=== PATIENT | male | born 1945 | race Caucasian/White ===

== ENCOUNTER 2017-12-12 10:22 | Outpatient (CLI) | payer MEDICARE, OTHER ==
[2017-12-12 11:20] LABS: Bilirubin Negative (Negative); Blood, Urine Negative (Negative); Clarity CLEAR (Clear); Glucose, Urine (Dipstick) Negative (Negative); Leukocyte Negative (Negative); Nitrite Negative (Negative); Protein, Urine (Dipstick) Negative (Neg-Trace); Specific Gravity, Urine 1.004 (1.002-1.036); Urobilinogen 0.2 mg/dL (0.2-1.0); pH, Urine 6.5 (5.0-9.0)
[2017-12-12 11:30] LABS: Anion Gap 11 mmol/L (10-20); BUN (Urea Nitrogen) 21 mg/dL (8.4-25.7); Calc. Creatinine Clearance 0 mL/min (70-130); Calcium 9.3 mg/dL (7.8-10.44); Carbon Dioxide 30 mmol/L (23-31); Chloride 103 mmol/L (98-107); Estimated GFR-MDRD 45; Glucose 100 mg/dL (83-110); Potassium 4.4 mmol/L (3.5-5.1); Sodium 140 mmol/L (136-145)
[2017-12-12 11:35] LABS: Bacteria/HPF None Seen HPF (None Seen); Hyaline Casts/LPF 0-3 HYALINE CAST LPF (0-3 Hyaline); RBC/HPF None Seen HPF (0-3); Squamous Epithelial None Seen HPF (0-3); WBC/HPF None Seen HPF (0-3)
--- NOTE | 2017-12-12 12:24 | CT ---
CT OF ABDOMEN AND PELVIS PERFORMED WITHOUT CONTRAST ENHANCEMENT: Date: 12/12/17 HISTORY: Follow-up to renal calculi. COMPARISON: 08/27/16 CT examination. FINDINGS: The lung bases show some minimal linear change in the lingula probably related to scar. Hypodensities within the liver are most likely cysts. Small hiatal hernia is noted. Spleen is upper l imits of normal. Pancreas shows fatty change. Gallbladder is normal in size. It shows a tiny probable gallstone or calcified polyp. Right and left adrenal glands are normal. Right and left kidneys are not obstructed. There is a singl e punctate upper pole left renal calculus present. No right renal calculi and no ureteral calculi. Th ere is no significant periaortic or mesenteric adenopathy. CT Of pelvis was performed without contrast enhancement. Postoperative changes are noted related to t he sigmoid colon region. There is no evidence of any adenopathy or mass. The prostate is enlarged. Th ere is a fat-containing left inguinal hernia. There is ankylosis of the SI joints. IMPRESSION: 1. Single punctate nonobstructing upper pole left renal calculus. 2. Probable small gallstone. 3. Enlarged prostate. 4. Findings that would suggest the possibility of ankylosing spondylitis. POS: [facility]
== END 2017-12-12 10:23 | disposition home or self-care (01) ==
LOC: CT 10:22
PROVIDERS: ATTEND Urology
DX: N20.0 Calculus of kidney (principal); N40.0 Benign prostatic hyperplasia without lower urinary tract symptoms
CPT/HCPCS: 36415; 74176; 80048; 81001; 87086

== ENCOUNTER 2018-08-20 11:58 | Outpatient (CLI) | payer MEDICARE, OTHER ==
--- NOTE | 2018-08-20 14:32 | RAD ---
RIGHT ANKLE RADIOGRAPH THREE VIEWS: INDICATIONS: Right ankle pain. COMPARISON: None. FINDINGS: There is enthesopathic change of the posterior and plantar calcaneus. There is soft tissue swelling surrounding the distal leg, ankle, and hindfoot. There is mild degenerative change involving the tib iotalar, subtalar, and midfoot joints. No acute fracture or subluxation is evident. IMPRESSION: 1. Soft tissue swelling of the right lower extremity. 2. Scattered osteoarthrosis of the right hindfoot. 3. No acute osseous abnormality. POS: [facility]
== END 2018-08-20 11:59 | disposition home or self-care (01) ==
LOC: BICRAD 11:58
PROVIDERS: ATTEND Family Medicine
DX: M25.571 Pain in right ankle and joints of right foot (principal); M19.071 Primary osteoarthritis, right ankle and foot; M79.89 Other specified soft tissue disorders

== ENCOUNTER 2018-12-22 14:29 | Outpatient (CLI) | payer MEDICARE, OTHER ==
--- NOTE | 2018-12-22 16:53 | ULT ---
RENAL SONOGRAM: Date: 12-22-18 History: Renal calculi, renal insufficiency. Comparison: 05-20-17 FINDINGS: The kidneys demonstrate a normal sonographic appearance bilaterally without evidence of a renal mass, renal calculus or hydronephrosis. Right kidney measures 12.9 cm x 6.2 cm with the left kidney measur ing 14 cm x 5.7 cm. There has been no significant interval change when compared to the prior exam. Th ere is question of renal calculi on the prior study, but no calculi are seen on this examination. Non contrast CT exam in 2018 demonstrated no renal calculi. The urinary bladder demonstrates a normal sonographic appearance with urinary bladder volume of 234.8 ml. IMPRESSION: 1. Normal appearing bilateral kidneys and urinary bladder. POS: [facility]
--- NOTE | 2018-12-22 17:02 | RAD ---
KUB: History: Renal calculi. FINDINGS: The bones are demineralized. Flowing type calcification along the lumbar spine and what appears to be fusion of the SI joints raises the possibility of ankylosing spondylitis. No renal calculi are identified. No definite ureteral calculus. Vascular calcifications are present. IMPRESSION: No definitive renal calculi. POS: [facility]
== END 2018-12-22 14:30 | disposition home or self-care (01) ==
LOC: BICULT 14:29
PROVIDERS: ATTEND Urology
DX: N20.0 Calculus of kidney (principal); N28.9 Disorder of kidney and ureter, unspecified; N40.1 Benign prostatic hyperplasia with lower urinary tract symptoms; M10.9 Gout, unspecified
CPT/HCPCS: 36415; 74018; 76770; 80048; 81001; 84550; 87086

== ENCOUNTER 2020-02-29 09:57 | Outpatient (CLI) | payer MEDICARE, OTHER ==
--- NOTE | 2020-02-29 12:01 | ULT ---
RENAL ULTRASOUND: DATE: 02/29/2020. PROVIDED CLINICAL HISTORY: Kidney stones. FINDINGS: Comparison 12/22/2018. The right kidney measures approximately 12.4 x 4.7 x 5.1 cm and demonstrates no evidence for hydronep hrosis or mass. Left kidney measures about 13.9 x 5.9 x 6.2 cm and demonstrates no evidence for hydronephrosis or mas s. Echogenic material is seen within the urinary bladder measuring about 1.5 cm, possibly reflecting liya dder calculus but incompletely evaluated on the basis of this examination. IMPRESSION: Echogenic mass measuring about 1.5 cm involving the urinary bladder. This may reflect calculus. Oth er etiologies are not excluded. Consider CT as indicated. POS: [facility]
--- NOTE | 2020-02-29 12:07 | RAD ---
KUB: DATE: 02/29/2020 HISTORY: Renal calculi. COMPARISON: 12/12/2018 exam. FINDINGS: Bowel gas pattern appears nonobstructed. I do not see any definitive renal calculi on this examinatio n. No definite ureteral calculi are present. Flowing calcification along the vertebral bodies and ankylosis of the SI joints would be compatible w ith ankylosing spondylitis. IMPRESSION: 1. No evidence for any definite renal calculi. 2. Findings suggestive of ankylosing spondylitis. POS: [facility]
[2020-02-29 13:36] LABS: Anion Gap 16 mmol/L (10-20); BUN (Urea Nitrogen) 22 mg/dL (8.4-25.7); Calc. Creatinine Clearance 0 mL/min (70-130); Calcium 9.5 mg/dL (7.8-10.44); Carbon Dioxide 22 mmol/L (23-31); Chloride 108 mmol/L (98-107); Estimated GFR-MDRD 44; Glucose 112 mg/dL (83-110); Potassium 4.5 mmol/L (3.5-5.1); Sodium 141 mmol/L (136-145); Uric Acid 5.8 mg/dL (3.5-7.2)
[2020-02-29 14:02] LABS: Bacteria/HPF None Seen HPF (None Seen); Bilirubin Negative (Negative); Blood, Urine 2+ (Negative); Clarity Clear (Clear); Glucose, Urine (Dipstick) Normal (Negative); Leukocyte 25 Leu/uL (Negative); Nitrite Negative (Negative); Protein, Urine (Dipstick) 10 mg/dL (Neg-Trace); RBC/HPF 21-50 HPF (0-3); Squamous Epithelial None Seen HPF (0-3); Urobilinogen Normal mg/dL (Less than 2)
[2020-02-29 14:09] LABS: Urine Culture Reflex Yes Yes
== END 2020-02-29 09:58 | disposition home or self-care (01) ==
LOC: BICULT 09:57
PROVIDERS: ATTEND Urology
DX: Z12.5 Encounter for screening for malignant neoplasm of prostate (principal); N20.0 Calculus of kidney; N40.0 Benign prostatic hyperplasia without lower urinary tract symptoms; N28.9 Disorder of kidney and ureter, unspecified; M10.9 Gout, unspecified; R31.0 Gross hematuria; N32.89 Other specified disorders of bladder
CPT/HCPCS: 74018; 76770; 80048; 81001; 84550; 87086; G0103; 36415

== ENCOUNTER 2020-03-03 11:13 | Outpatient (CLI) | payer MEDICARE, OTHER ==
--- NOTE | 2020-03-03 12:38 | RAD ---
SUPINE ABDOMEN: HISTORY: Renal stone. COMPARISON: 02/29/2020. FINDINGS: Bowel gas pattern unremarkable. No definite urinary tract calcification. Degenerative spine changes . Evidence of syndesmophytes in the spine again noted. Degenerative changes at both hips. IMPRESSION: No interval change. No definite urinary tract calcification identified. POS: [facility]
--- NOTE | 2020-03-03 13:17 | CT ---
CT ABDOMEN AND PELVIS WITHOUT CONTRAST: 03/03/20 HISTORY: Kidney stones. COMPARISON: 12/12/17. FINDINGS: Absence of oral and IV contrast reduces the sensitivity for the exam particularly for evaluation of s olid organs and bowel. The lung bases are unremarkable. Hepatic cysts are stable. There are calcified gallstones. There is fatty infiltration and atrophy of the pancreas. There are tiny calculi in the left kidney measuring up to 3 mm. No calculi is seen in the right kidne y or either ureter. No hydroureteronephrosis seen. There is a 2 mm calculus in the dependent portion of the left side of the urinary bladder likely due to recently passed calculus. There is suggestion of a partially calcified 1 cm mass arising from the left wall of the urinary bladder. The prostate i s enlarged. No free air or free fluid is seen in the abdomen or pelvis. There are vascular calcifications without evidence of aneurysmal dilatation of the abdominal aorta. Fat containing bilateral inguinal hernia a re present. There are degenerative changes of the spine. IMPRESSION: 1. Hepatic cysts. 2. Cholelithiasis. 3. Nonobstructing tiny left renal calculi. 4. 2 mm bladder calculus. 5. Findings suspicious for a 1cm bladder mass. This should be evaluated with cystoscopy. 6. Prostatic enlargement. POS: [facility]
== END 2020-03-03 11:14 | disposition home or self-care (01) ==
LOC: SCSCT 11:13
PROVIDERS: ATTEND Urology
DX: N20.0 Calculus of kidney (principal); M10.9 Gout, unspecified; N28.9 Disorder of kidney and ureter, unspecified; K80.20 Calculus of gallbladder without cholecystitis without obstruction; N21.0 Calculus in bladder; K76.89 Other specified diseases of liver; N40.0 Benign prostatic hyperplasia without lower urinary tract symptoms
CPT/HCPCS: 74018; 74176

== ENCOUNTER 2020-03-11 06:30 | Outpatient (CLI) | payer MEDICARE, OTHER ==
[2020-03-11 08:38] VITALS: BMI 34.2
--- NOTE | 2020-03-11 13:23 | RAD ---
PA AND LATERAL OF THE CHEST: 03/11/20 INDICATION: Preop evaluation. COMPARISON: Prior exam dated August 29, 2016. FINDINGS: The lungs are clear. Heart size is within normal limits. DISH-like changes of the thoracic spine are stable appearing. No pleural effusion or pneumothorax is identified. IMPRESSION: No acute cardiopulmonary abnormality. POS: [facility]
== END 2020-03-11 06:31 | disposition home or self-care (01) ==
LOC: LABBT 06:30
PROVIDERS: ATTEND Urology
DX: Z01.818 Encounter for other preprocedural examination (principal); N32.89 Other specified disorders of bladder; M10.9 Gout, unspecified; N28.9 Disorder of kidney and ureter, unspecified; N20.0 Calculus of kidney; R97.20 Elevated prostate specific antigen [PSA]; Z86.711 Personal history of pulmonary embolism; N40.1 Benign prostatic hyperplasia with lower urinary tract symptoms; R35.0 Frequency of micturition
CPT/HCPCS: 71046

== ENCOUNTER 2020-03-16 05:43 | Observation (INO) | payer MEDICARE, OTHER ==
[2020-03-11 10:46] LABS: PTT 26.4 SEC (22.9-36.1); Prothrombin Time 13.1 sec (12.0-14.7)
[2020-03-11 10:53] LABS: Anion Gap 13 mmol/L (10-20); BUN (Urea Nitrogen) 20 mg/dL (8.4-25.7); Calc. Creatinine Clearance 67 mL/min (70-130); Calcium 9.5 mg/dL (7.8-10.44); Carbon Dioxide 24 mmol/L (23-31); Chloride 108 mmol/L (98-107); Estimated GFR-MDRD 47; Glucose 118 mg/dL (83-110); Sodium 140 mmol/L (136-145)
[2020-03-11 11:38] LABS: #Eosinphils 0.2 thou/uL (0.0-0.7); #Lymphocytes 0.8 thou/uL (1.20-3.40); #Monocytes 0.5 thou/uL (0.11-0.59); #Neutrophils 3.3 thou/uL (1.40-6.50); %Basophils 0.2 % (0.0-1.0); %Eosinophils 3.3 % (0.0-10.0); %Lymphocytes 16.1 % (21.0-51.0); %Monocytes 10.2 % (0.0-10.0); %Neutrophils 70.1 % (42.0-75.0); Hemoglobin 13.7 g/dL (14.0-18.0); MDiff Complete? YES; Macrocytosis SLIGHT = 6-15 cells (100X) (0-5/hpf); Mean Corpuscular HGB CONC 32.2 g/dL (32.0-36.0); Mean Corpuscular Hemoglobin 34.7 pg (27.0-31.0); Mean Platelet Volume 7.6 fL (7.4-10.4); Platelet Count 148 thou/uL (130-400); Platelet Morphology Comment Appears Decreased; RBC Distribution Width 12.8 % (11.5-14.5); Red Blood Cell (RBC) Count 3.96 mill/uL (4.70-6.10); White Blood Cell (WBC) Count 4.7 thou/uL (4.8-10.8)
[2020-03-11 17:21] LABS: SARS-CoV-2 MS2 Positive; SARS-CoV-2 N Gene Negative; SARS-CoV-2 S Gene Negative; SARS-CoV-2 orf1ab Negative
[2020-03-16] MEDS ORDERED: Sodium Chloride 0.9% 100 ML ONE (06:36)
[2020-03-16] MEDS ORDERED: Piperacillin/Tazobactam 3.375 GM VIAL ONE (06:36)
[2020-03-16] MEDS ORDERED: Famotidine/PF 20 mg/2ml Vial ONE (06:39)
[2020-03-16] MEDS ORDERED: Fentanyl 100 MCG/2 ML VIAL ONE (06:39)
[2020-03-16] MEDS ORDERED: SUGAMMADEX SODIUM 500 MG/5 ML VIAL ONE (07:13)
[2020-03-16] MEDS ORDERED: Iopamidol 50 ML FS ONE (07:14)
[2020-03-16] MEDS ORDERED: Zolpidem Tartrate 5 MG TAB PO PRN (09:21)
[2020-03-16] MEDS ORDERED: Morphine 4 MG/ML VIAL SLOW IVP PRN (09:21)
[2020-03-16] MEDS ORDERED: Acetaminophen 500 MG TAB PO PRN (09:21)
[2020-03-16] MEDS ORDERED: hydrALAZINE 20 MG/ML VIAL SLOW IVP PRN (09:21)
[2020-03-16] MEDS ORDERED: HYDROcodone/Acetaminophen 5/325 mg Tablet PO PRN (09:21)
[2020-03-16] MEDS ORDERED: Morphine 2 MG/ML SYRINGE SLOW IVP PRN (09:21)
[2020-03-16] MEDS ORDERED: diphenhydrAMINE 50 MG/ML VIAL IVP PRN (09:21)
[2020-03-16] MEDS ORDERED: Mag-Al 1200 mg/1200 mg/30 ML UDCUP PO PRN (09:21)
[2020-03-16] MEDS ORDERED: Ondansetron PF 4 MG/2 ML Vial IVP PRN (09:21)
[2020-03-16] MEDS ORDERED: Promethazine HCl 25 MG/ML VIAL IM PRN (10:42)
[2020-03-16] MEDS ORDERED: Ondansetron HCl/PF 4 MG/2 ML Vial IVP PRN (10:42)
[2020-03-16] MEDS ORDERED: Promethazine HCl 25 MG/ML VIAL SLOW IVP PRN (10:42)
[2020-03-16 12:05] LABS: #Lymphocytes 0.4 thou/uL (1.20-3.40); #Monocytes 0.1 thou/uL (0.11-0.59); #Neutrophils 3.5 thou/uL (1.40-6.50); %Basophils 0.2 % (0.0-1.0); %Eosinophils 0.3 % (0.0-10.0); %Lymphocytes 10.8 % (21.0-51.0); %Monocytes 1.9 % (0.0-10.0); %Neutrophils 86.8 % (42.0-75.0); Hemoglobin 13.4 g/dL (14.0-18.0); Mean Corpuscular HGB CONC 33.5 g/dL (32.0-36.0); Mean Corpuscular Hemoglobin 35.6 pg (27.0-31.0); Mean Platelet Volume 7.2 fL (7.4-10.4); Platelet Count 130 thou/uL (130-400); RBC Distribution Width 12.6 % (11.5-14.5); Red Blood Cell (RBC) Count 3.77 mill/uL (4.70-6.10); White Blood Cell (WBC) Count 4.1 thou/uL (4.8-10.8)
--- NOTE | 2020-03-16 12:18 | OP ---
DATE OF PROCEDURE: 03/16/2020 PREOPERATIVE DIAGNOSES: A 75-year-old male presents with, 1. 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 2. Multiple bladder tumor: Mid trigone 8-10 mm, left lateral wall focus x2, each measuring about 1 cm; second focus with calcific density adherent, left lateral third lesion about 8-10 mm, posterior wall about a centimeter. 3. 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 4. moderate bilobar hyperplasia, prostate volume 65 g. 5. Bladder stone debris. 6. Elevated PSA with abnormal BEAR. POSTOPERATIVE DIAGNOSES: Same . PROCEDURES PERFORMED: Cystoscopy, transurethral resection of bladder tumor of multiple bladder tumor, in which total concomitant measures over 5 cm, channel transurethral resection of the prostate, transurethral resection of bladder neck tumor x2, transurethral resection of prostatic urethral veru mass, evacuation of bladder stone debris, transrectal ultrasound volume study, prostate biopsy x6 core ANESTHESIA: General. IV FLUIDS: 1400 mL. ESTIMATED BLOOD LOSS: Minimal. COMPLICATIONS: None apparent. INTRAOPERATIVE FINDINGS: 1. Bilobar hyperplasia of the prostate with no median lobe, [id number] obstruction. 2. A verumontanum prostatic urethral lesion suspicious for TCC in which exiting the verumontanum region measuring about 8 to 10 mm. 3. Bladder neck lesion x2 each measuring about 1 cm, however, pedunculated with a narrow stalk. 4. Multiple bladder tumor: Mid trigone 8 to 10 mm,left lateral multiple focus x3: dominant region left lateral wall x2 each measuring about 8-10 mm, second focus have calcific density adherent; posterior bladder wall tumor 8-10mm SPECIMENS: 1. Superficial bladder tumor of the left lateral trigone. 2. Deep sent separately from this region. 3. Bladder neck tumor, deep bladder neck sent separately. 4. Verumontanum tumor. 5. Channel TUR prostate specimen. 6. Six core prostate volume labeled right base, mid lateral,apex, left base, mid lateral, left apex INDICATIONS FOR PROCEDURE AND HISTORY: Mr. Greenwood is a 75-year-old male, well known to me, in which he initially presented with renal failure with multiple urolithiasis. I initially saw him back in 2015 and his stones have resolved. Recent CT scan demonstrates just punctate left renal lithiasis, not of concern. He has some mild sediment stone debris in the bladder with a recent cystoscopy. A renal bladder ultrasound was obtained for surveillance of his history of kidney stone. However, the ultrasound demonstrated the left lateral bladder tumor with calcific density. A definitive CT confirmed this as well as cystoscopy. Unfortunately, cystoscopy demonstrated multiple lesions as described as above, and he presents today for staging TURBT, TUR prostate channel, and prostate biopsy as his abnormal digital rectal exam with firmness, and elevated PSA. Indications for the procedure were reviewed with him in detail in differential diagnosis suspicious for transitional cell carcinoma with concomitant prostate involvement versus secondary prostate cancer has been discussed with him in detail. Risks and complications of the procedure have been discussed including, but not limited to , bleeding, pain, infection, injury to adjacent organs such as ureteral orifices, bladder perforation, sepsis, abscess, stricture formation, PE and DVT, perioperative morbidity and mortality. All questions were answered to his satisfaction and he desired to proceed. DESCRIPTION OF PROCEDURE: After an informed consent was signed, the patient was taken to the operating room, placed in a dorsal lithotomy position with the genital area prepped and draped in the usual surgical sterile fashion. We staged the urethra in the bladder with a 21-Bahamian 30-degree and a 70-degree lens. Again, noted at the level of the verumontanum was a pedunculated sessile lesion exiting the veru, and it is pedunculated measuring about a centimeter. Prostatic urethra demonstrates [id number] bilobar hyperplasia of the prostate. There is no median lobe. At the level of the bladder neck, there were two pedunculated lesions, each of which measure about 8 to 10 mm. It had a pedunculated stalk. Upon entering the bladder, the UOs were identified bilaterally well away from the bladder neck with trabeculation consistent with chronic outlet obstruction. There was some sediment debris within the bladder consistent with bladder calculi, these were Ellik evacuated with tumor resection. We staged his bladder tumors, of note was bladder tumor visualized demonstrates post trigone lesion about 8 to 10 mm, left lateral bladder tumor x4 focus, two dominant ones in the left lateral, each measuring about 8 to 10 mm second focus demonstrating calcific density adherent, the third nidus on the left lateral wall, also about 8 to 10 mm, posterior wall also about 8 to 10 mm in size. At this time, we transitioned to a 30-degree and a 70-degree lens, and there was no other bladder neck lesion identified. A 26-Bahamian resectoscope with a visual obturator was passed. We treated his bladder tumor first. We resected the left lateral tumors, then proceeded with our trigone tumor. The superficial tumors were sent separately. I did take a deep specimen from the left lateral dominant tumor and sent separately. We then proceeded to treat his bladder neck tumors, which were sent separately. Deep TUR of bladder neck was also sent at the tumor bed of the bladder neck lesion. At this time, we resected his verumontanum tumor. This was sent separately as well. We obtained hemostasis of his lateral prostatic lobes. His lateral lobes of the prostate were quite oozy, as there were prominent varicosity. I cauterized the prostatic mucosa, however, it had persistent oozing. Therefore, decision was made to perform a channel TUR to get deeper tissue and obtain better hemostasis. Channel TURP was performed. we obtained good hemostasis and no further bleeding was appreciated. The prostatic tissue was sent separately. At this time, a 22- Bahamian 3-way Cox catheter was placed without difficulty, 30 mL insufflated. CBI tubing was attached, however, clamped and I will monitor him for degree of hematuria. At this time, the patient was placed in the left lateral decubitus position. Transrectal ultrasound probe was placed. A digital rectal exam demonstrates firm nodular prostate. There was a tiny nodularity at the right base to mid prostate with no gross extension. Volume study was performed. Prostate urethral length measures 5.2 with 5.5, height of 4.3, volume 65 g. At this time, we obtained six core needle prostate biopsy of his prostate, labeled right base, right mid, right apex, left base, left mid, left apex. He tolerated the procedure well and was transported to the recovery room in stable condition. Given the above procedures, I will monitor the patient overnight, a 23-hour observation. Job ID: [id number] [facility]
[2020-03-16 12:27] VITALS: BMI 34.2
[2020-03-16 12:30] LABS: Anion Gap 14 mmol/L (10-20); BUN (Urea Nitrogen) 21 mg/dL (8.4-25.7); Calc. Creatinine Clearance 72 mL/min (70-130); Calcium 8.3 mg/dL (7.8-10.44); Carbon Dioxide 22 mmol/L (23-31); Chloride 110 mmol/L (98-107); Estimated GFR-MDRD 51; Glucose 116 mg/dL (83-110); Potassium 4.6 mmol/L (3.5-5.1); Sodium 141 mmol/L (136-145)
[2020-03-16] MEDS: Sodium Chloride 0.9% 1,000 ML IV SCH ×2 (12:54→13:04)
[2020-03-16] MEDS: HYDROcodone/Acetaminophen 5/325 mg Tablet PO PRN ×2 (13:00→18:10)
[2020-03-16] MEDS: Piperacillin/Tazobactam 3.375 GM in Sodium Chloride 0.9% 100 ML IVPB SCH ×2 (13:08→18:11)
[2020-03-16] MEDS ORDERED: Rocuronium Bromide 10 MG/ML (10ML VIAL) ONE (15:48)
[2020-03-16] MEDS ORDERED: Lidocaine 1% PF 5 ML VIAL ONE (15:48)
[2020-03-16] MEDS ORDERED: EPHEDRINE 25 MG/5 ML SYRINGE ONE (15:48)
[2020-03-16] MEDS ORDERED: PROPOFOL 200 MG/20 ML VIAL ONE (15:48)
[2020-03-16] MEDS ORDERED: Dexamethasone 20 MG/5 ML VIAL ONE (15:48)
[2020-03-16] MEDS ORDERED: Ondansetron PF 4 MG/2 ML Vial ONE (15:48)
[2020-03-16] MEDS ORDERED: Metoclopramide HCl 10 MG/2 ML VIAL ONE (15:48)
[2020-03-16] MEDS ORDERED: PHENYLEPHRINE-NS 100 MCG/ML 10 ML SYRINGE ONE (15:48)
[2020-03-16] MEDS ORDERED: Trospium 20 MG TAB PO SCH (21:00)
[2020-03-16] MEDS ORDERED: Rosuvastatin 20 MG TAB PO SCH (21:00)
[2020-03-16] MEDS ORDERED: Docusate 100 MG CAP PO SCH (21:00)
[2020-03-16] MEDS ORDERED: Famotidine/PF 20 mg/2ml Vial SLOW IVP SCH (21:00)
[2020-03-17] MEDS: Piperacillin/Tazobactam 3.375 GM in Sodium Chloride 0.9% 100 ML IVPB SCH ×2 (00:21→06:13)
[2020-03-17] MEDS: Sodium Chloride 0.9% 1,000 ML IV SCH (02:04)
[2020-03-17 03:38] VITALS: BP 129/77; TEMP 98.1
[2020-03-17 06:06] LABS: #Lymphocytes 0.5 thou/uL (1.20-3.40); #Monocytes 0.5 thou/uL (0.11-0.59); #Neutrophils 5.4 thou/uL (1.40-6.50); %Basophils 0.2 % (0.0-1.0); %Eosinophils 0.1 % (0.0-10.0); %Lymphocytes 8.3 % (21.0-51.0); %Neutrophils 83.4 % (42.0-75.0); Hemoglobin 12.3 g/dL (14.0-18.0); Mean Corpuscular HGB CONC 32.8 g/dL (32.0-36.0); Mean Corpuscular Hemoglobin 35.1 pg (27.0-31.0); Mean Platelet Volume 7.5 fL (7.4-10.4); Platelet Count 133 thou/uL (130-400); RBC Distribution Width 12.6 % (11.5-14.5); White Blood Cell (WBC) Count 6.5 thou/uL (4.8-10.8)
[2020-03-17 06:29] LABS: Anion Gap 11 mmol/L (10-20); BUN (Urea Nitrogen) 20 mg/dL (8.4-25.7); Carbon Dioxide 23 mmol/L (23-31); Chloride 109 mmol/L (98-107); Potassium 4.3 mmol/L (3.5-5.1); Sodium 139 mmol/L (136-145)
[2020-03-17 06:30] LABS: Calc. Creatinine Clearance 70 mL/min (70-130); Calcium 7.6 mg/dL (7.8-10.44); Estimated GFR-MDRD 50; Glucose 147 mg/dL (83-110)
[2020-03-17] MEDS ORDERED: Silodosin 4 MG CAP PO SCH (08:00)
[2020-03-17] MEDS ORDERED: Allopurinol 100 MG TAB PO SCH (09:00)
[2020-03-17] MEDS ORDERED: Finasteride 5 MG TAB PO SCH (09:00)
[2020-03-17] MEDS ORDERED: Folic Acid 1 MG TAB PO SCH (09:00)
[2020-03-17] MEDS ORDERED: pyridOXINE 50 MG (B6) TAB PO SCH (09:00)
--- NOTE | 2020-03-17 09:38 | DIS ---
DATE OF ADMISSION: 03/16/2020 DATE OF DISCHARGE: 03/17/2020 DISPOSITION: To home with indwelling Cox catheter to leg bag gravity. CONDITION: Stable. DISCHARGE MEDICATIONS: Omnicef 300 mg one p.o. b.i.d. until followup appointment. He may resume his home medication, except his aspirin. Activity level, no heavy lifting, straddling, stair climbing. BRIEF HOSPITAL COURSE: Mr. Greenwood is a pleasant 75-year-old male, whom I have known due to history of kidney stones, renal insufficiency. On surveillance renal bladder ultrasound, he was found to have a bladder mass. 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 He also underwent transrectal ultrasound prostate biopsy and a channel TURP concomitantly due to elevated PSA and prostatic urethral lesion. Surgery was uneventful. He has not had any significant gross hematuria of concern and is stable to be discharged. followup appointment next Saturday for catheter removal and review of pathology. Job ID: [id number] [facility]
== END 2020-03-17 08:30 | disposition home or self-care (01) ==
LOC: SDC 05:43 → SURG A 09:29
PROVIDERS: ADMIT Urology; ATTEND Urology
PROC: 0VB03ZX Excision of Prostate, Percutaneous Approach, Diagnostic (ICD-10-PCS; principal; 2020-03-16)
PROC: 0VT08ZZ Resection of Prostate, Via Natural or Artificial Opening Endoscopic (ICD-10-PCS; 2020-03-16)
PROC: 0TBB8ZZ Excision of Bladder, Via Natural or Artificial Opening Endoscopic (ICD-10-PCS; 2020-03-16)
PROC: 0TBC8ZZ Excision of Bladder Neck, Via Natural or Artificial Opening Endoscopic (ICD-10-PCS; 2020-03-16)
PROC: 0T5B8ZZ Destruction of Bladder, Via Natural or Artificial Opening Endoscopic (ICD-10-PCS; 2020-03-16)
DX: C61 Malignant neoplasm of prostate (principal); C67.0 Malignant neoplasm of trigone of bladder; C67.2 Malignant neoplasm of lateral wall of bladder; C67.5 Malignant neoplasm of bladder neck; N40.1 Benign prostatic hyperplasia with lower urinary tract symptoms; R35.0 Frequency of micturition; N13.8 Other obstructive and reflux uropathy; N32.89 Other specified disorders of bladder; N28.9 Disorder of kidney and ureter, unspecified; M10.9 Gout, unspecified; I25.10 Atherosclerotic heart disease of native coronary artery without angina pectoris; I95.89 Other hypotension; K90.0 Celiac disease; N52.9 Male erectile dysfunction, unspecified; E78.5 Hyperlipidemia, unspecified; F41.9 Anxiety disorder, unspecified; Z87.442 Personal history of urinary calculi; Z86.711 Personal history of pulmonary embolism; Z87.891 Personal history of nicotine dependence; Z79.899 Other long term (current) drug therapy; Z95.1 Presence of aortocoronary bypass graft; Z90.49 Acquired absence of other specified parts of digestive tract
CPT/HCPCS: 52240; 52601; 55700; 80048 ×3; 85025 ×3; 85610; 85730; 86850; 86900; 86901; 96361 ×2; 96365; 96366 ×2; 96375; C1758; G0378 ×2; U0003; 36415; 87635; 88305; 88341; 88342; J1100; J2001; J2405; J2543; J2704; J2765; J3010; J3490; Q9967; S0028

== ENCOUNTER 2020-04-06 09:00 | Outpatient (CLI) | payer MEDICARE, OTHER ==
--- NOTE | 2020-04-06 11:38 | CT ---
CHEST CT WITHOUT IV CONTRAST: HISTORY: Malignant neoplasm of urinary bladder. FINDINGS: Minimal scattered linear parenchymal changes in the lingula and some pleural-based linear changes in the right lower lobe with minimal pleural thickening having the appearance of chronic change. No dulce dence for metastasis. No mediastinal mass or adenopathy. A 2 cm diameter partially calcified nodule in the left lobe of the thyroid with a smaller nodule in the right lobe of the thyroid. No pleural effusion or pericardial effusion. Circumscribed low-attenuation foci within the liver, stable from p rior study. Probable cholelithiasis. Fatty changes in the pancreas. One calcific density in the le ft kidney, possibly a small stone versus a small vascular calcification. IMPRESSION: No evidence for pulmonary metastasis. Left lobe of thyroid partially calcified nodule. No mediastin al mass or adenopathy. Cholelithiasis without evidence for acute cholecystitis. Small punctate left renal calcific opacification, possibly a small stone versus focal renal vascular calcification. Oth er findings as above. POS: [facility]
--- NOTE | 2020-04-06 13:56 | NM ---
NUCLEAR MEDICINE BONE SCAN WHOLE BODY: (Skeletal scintigraphy) DATE: 04/06/2020 HISTORY: 75-year-old male with prostate cancer and bladder cancer. TECHNIQUE: IV injection of technetium 99m-MDP: 31.2 mCi 3 hour delayed whole body skeletal scintigraphy in anterior and posterior views. FINDINGS: There is a single focal abnormal focus of significantly increased uptake at the right ischium, includ ing ischial tuberosity. Review of 03/03/2020 CT demonstrates an ill-defined region of nonspecific, sclerosis of bone in this lo cation, with no fracture lucency. This was not present on CTs of 09/13/2015, CT of 10/11/2015, 11/17/2015, 02/23/2016, 08/27/2016, or 12/12/2017. No other foci are suspicious for metastasis. IMPRESSION: Solitary focus of increased uptake at the right ischium. This could represent a solitary metastatic o sseous lesion.
== END 2020-04-06 09:01 | disposition home or self-care (01) ==
LOC: CT 09:00
PROVIDERS: ATTEND Urology
DX: C67.9 Malignant neoplasm of bladder, unspecified (principal); C61 Malignant neoplasm of prostate; K80.20 Calculus of gallbladder without cholecystitis without obstruction; E04.1 Nontoxic single thyroid nodule; N28.89 Other specified disorders of kidney and ureter; C79.51 Secondary malignant neoplasm of bone
CPT/HCPCS: 71250; 78306; A9503

== ENCOUNTER 2020-11-25 12:30 | Outpatient (CLI) | payer MEDICARE, OTHER | END 2020-11-25 12:31 | disposition home or self-care (01) | LOC: BICULT 12:30 | PROVIDERS: ATTEND Internal Medicine Gastroenterology | DX: D12.6 Benign neoplasm of colon, unspecified (principal); K90.0 Celiac disease; E04.2 Nontoxic multinodular goiter; Z93.6 Other artificial openings of urinary tract status | CPT/HCPCS: 76536 ==

== ENCOUNTER 2022-05-10 12:59 | Outpatient (CLI) | payer MEDICARE, OTHER | END 2022-05-10 13:00 | disposition home or self-care (01) | LOC: BICULT 12:59 | PROVIDERS: ATTEND Otolaryngology Plastic Surgery within the Head & Neck | DX: E04.1 Nontoxic single thyroid nodule (principal) | CPT/HCPCS: 76536 ==

== ENCOUNTER 2022-08-15 08:34 | Outpatient (CLI) | payer MEDICARE, OTHER ==
[2022-08-15] MEDS ORDERED: Magnevist 469MG/ML 20 ML VIAL ONE (10:37)
== END 2022-08-15 08:35 | disposition home or self-care (01) ==
LOC: TBSIIMAG 08:34
PROVIDERS: ATTEND Radiology Radiation Oncology
DX: C79.51 Secondary malignant neoplasm of bone (principal); C61 Malignant neoplasm of prostate; Z98.890 Other specified postprocedural states
CPT/HCPCS: 72197; A9579

== ENCOUNTER 2022-09-22 02:02 | Inpatient (IN) | payer MEDICARE, OTHER ==
[2022-09-22] MEDS ORDERED: Acetaminophen 500 MG TAB ONE (02:53)
[2022-09-22 03:00] LABS: #Basophils 0.1 thou/uL (0.0-0.2); #Eosinphils 0.1 thou/uL (0.0-0.7); #Lymphocytes 0.2 thou/uL (1.20-3.40); #Monocytes 0.6 thou/uL (0.11-0.59); #Neutrophils 5.3 thou/uL (1.40-6.50); %Basophils 1.1 % (0.0-1.0); %Eosinophils 1.4 % (0.0-10.0); %Lymphocytes 3.2 % (21.0-51.0); %Monocytes 9.1 % (0.0-10.0); %Neutrophils 85.1 % (42.0-75.0); Hemoglobin 11.3 g/dL (14.0-18.0); Mean Corpuscular HGB CONC 33.4 g/dL (32.0-36.0); Mean Corpuscular Hemoglobin 37.4 pg (27.0-31.0); Mean Platelet Volume 7.3 fL (7.4-10.4); Platelet Count 109 10x3/uL (130-400); RBC Distribution Width 12.1 % (11.5-14.5); Red Blood Cell (RBC) Count 3.04 mill/uL (4.70-6.10); White Blood Cell (WBC) Count 6.2 10x3/uL (4.8-10.8)
[2022-09-22 03:45] LABS: ALT (SGPT) 18 U/L (8-55); AST (SGOT) 25 U/L (5-34); Albumin 3.8 g/dL (3.4-4.8); Alkaline Phosphatase 75 U/L (40-110); Anion Gap 13 mmol/L (10-20); BUN (Urea Nitrogen) 22 mg/dL (8.4-25.7); Bilirubin, Total 0.9 mg/dL (0.2-1.2); Calc. Creatinine Clearance 0 mL/min (70-130); Calcium 9.3 mg/dL (7.8-10.44); Carbon Dioxide 20 mmol/L (23-31); Chloride 104 mmol/L (98-107); Estimated GFR 51; Glucose 160 mg/dL (83-110); Magnesium 1.7 mg/dL (1.6-2.6); Potassium 4.3 mmol/L (3.5-5.1); Protein, Total 6.8 g/dL (5.8-8.1); Sodium 133 mmol/L (136-145)
[2022-09-22 03:55] LABS: SARS-CoV-2 NAA Rapid Test Not Detected (NotDetected)
[2022-09-22] MEDS ORDERED: Ondansetron PF 4 MG/2 ML Vial IVP PRN (05:36)
[2022-09-22] MEDS ORDERED: Acetaminophen 650 MG Suppository PR PRN (05:36)
[2022-09-22] MEDS ORDERED: Ondansetron ODT 4 MG TAB PO PRN (05:36)
[2022-09-22] MEDS ORDERED: Magnevist 469MG/ML 20 ML VIAL ONE (10:57)
[2022-09-22 13:52] VITALS: BMI 33.0
[2022-09-22] MEDS: Enoxaparin Sodium 40 MG/0.4 ML SYRINGE SC SCH (15:51)
[2022-09-22] MEDS: Sodium Chloride 0.9% 1,000 ML IV SCH (15:51)
[2022-09-22] MEDS: XTANDI 40 MG PO SCH (18:48)
[2022-09-22] MEDS: Acetaminophen 325 MG TAB PO PRN (22:19)
[2022-09-22] MEDS: MINERAL SUPPLEMENT PO SCH (22:19)
[2022-09-22] MEDS: Rosuvastatin 20 MG TAB PO SCH (22:19)
[2022-09-22] MEDS: [UNRECOGNIZED DRUG - OTHER] PO SCH (22:19)
[2022-09-22] MEDS: Ferrous Sulfate 325 MG TAB PO SCH (22:21)
[2022-09-22] MEDS: Ascorbic Acid 500 mg Chewable Tablet PO SCH (22:24)
[2022-09-23] MEDS: Sodium Chloride 0.9% 1,000 ML IV SCH ×2 (00:20→13:19)
[2022-09-23 06:06] LABS: #Eosinphils 0.2 thou/uL (0.0-0.7); #Lymphocytes 0.6 thou/uL (1.20-3.40); #Monocytes 0.4 thou/uL (0.11-0.59); #Neutrophils 2.2 thou/uL (1.40-6.50); %Basophils 0.3 % (0.0-1.0); %Eosinophils 4.8 % (0.0-10.0); %Lymphocytes 17.9 % (21.0-51.0); %Monocytes 11.6 % (0.0-10.0); %Neutrophils 65.4 % (42.0-75.0); Hemoglobin 10.3 g/dL (14.0-18.0); Mean Corpuscular HGB CONC 33.2 g/dL (32.0-36.0); Mean Corpuscular Hemoglobin 37.6 pg (27.0-31.0); Mean Platelet Volume 7.1 fL (7.4-10.4); Platelet Count 114 10x3/uL (130-400); RBC Distribution Width 12.1 % (11.5-14.5); Red Blood Cell (RBC) Count 2.73 mill/uL (4.70-6.10); White Blood Cell (WBC) Count 3.4 10x3/uL (4.8-10.8)
[2022-09-23 06:17] LABS: Anion Gap 12 mmol/L (10-20); BUN (Urea Nitrogen) 17 mg/dL (8.4-25.7); Calc. Creatinine Clearance 71 mL/min (70-130); Calcium 9.1 mg/dL (7.8-10.44); Carbon Dioxide 23 mmol/L (23-31); Chloride 108 mmol/L (98-107); Estimated GFR 59; Glucose 103 mg/dL (83-110); Potassium 4.1 mmol/L (3.5-5.1); Sodium 139 mmol/L (136-145)
[2022-09-23] MEDS: XTANDI 40 MG PO SCH (07:37)
[2022-09-23] MEDS ORDERED: FLU VACC QS2022-23(65YR UP)/PF 240 MCG/0.7 ML SYRINGE IM ONE (09:00)
[2022-09-23] MEDS: pyridOXINE 50 MG (B6) TAB PO SCH (09:36)
[2022-09-23] MEDS: Multivitamin W/ Minerals 1 TAB PO SCH (09:36)
[2022-09-23] MEDS: Enoxaparin Sodium 40 MG/0.4 ML SYRINGE SC SCH (09:36)
[2022-09-23] MEDS: Ferrous Sulfate 325 MG TAB PO SCH ×2 (09:36→21:45)
[2022-09-23] MEDS: Ascorbic Acid 500 mg Chewable Tablet PO SCH ×2 (09:36→21:40)
[2022-09-23] MEDS: Aspirin 81 mg Enteric Coated Tablet PO SCH (09:37)
[2022-09-23] MEDS: Allopurinol 100 MG TAB PO SCH (09:37)
[2022-09-23] MEDS: [UNRECOGNIZED DRUG - OTHER] PO SCH ×2 (09:37→21:40)
[2022-09-23] MEDS: MINERAL SUPPLEMENT PO SCH ×2 (09:37→21:40)
[2022-09-23] MEDS: Folic Acid 1 MG TAB PO SCH (09:37)
[2022-09-23] MEDS ORDERED: cefTRIAXone\\ROCEPHIN 2 GM in Sodium Chloride 0.9% 100 ML IVPB SCH (12:45)
[2022-09-23] MEDS ORDERED: cefTRIAXone\\ROCEPHIN 1 GM in Sodium Chloride 0.9% 100 ML IVPB SCH (13:00)
[2022-09-23] MEDS ORDERED: Dexamethasone 4 MG TAB PO SCH (14:15)
[2022-09-23] MEDS: Dexamethasone 4 MG TAB PO SCH (18:33)
[2022-09-23] MEDS: Calcium Carbonate 600 MG + Vit D TAB PO SCH (21:45)
[2022-09-23] MEDS: Rosuvastatin 20 MG TAB PO SCH (21:45)
[2022-09-23] MEDS: Floranex 1 GM Packet PO SCH (21:45)
[2022-09-24] MEDS: Dexamethasone 4 MG TAB PO SCH ×5 (00:10→23:48)
[2022-09-24] MEDS: Sodium Chloride 0.9% 1,000 ML IV SCH (05:15)
[2022-09-24] MEDS: XTANDI 40 MG PO SCH (07:35)
[2022-09-24] MEDS: Aspirin 81 mg Enteric Coated Tablet PO SCH (08:48)
[2022-09-24] MEDS: MINERAL SUPPLEMENT PO SCH ×2 (08:48→20:12)
[2022-09-24] MEDS: [UNRECOGNIZED DRUG - OTHER] PO SCH ×2 (08:48→20:12)
[2022-09-24] MEDS: Ascorbic Acid 500 mg Chewable Tablet PO SCH ×2 (08:49→20:11)
[2022-09-24] MEDS: Multivitamin W/ Minerals 1 TAB PO SCH (08:49)
[2022-09-24] MEDS: Allopurinol 100 MG TAB PO SCH (08:49)
[2022-09-24] MEDS: Calcium Carbonate 600 MG + Vit D TAB PO SCH ×2 (08:49→20:11)
[2022-09-24] MEDS: Ferrous Sulfate 325 MG TAB PO SCH ×2 (08:49→20:11)
[2022-09-24] MEDS: Folic Acid 1 MG TAB PO SCH (08:50)
[2022-09-24] MEDS: pyridOXINE 50 MG (B6) TAB PO SCH (08:50)
[2022-09-24] MEDS: Enoxaparin Sodium 40 MG/0.4 ML SYRINGE SC SCH (08:58)
[2022-09-24] MEDS: Floranex 1 GM Packet PO SCH ×2 (09:00→20:15)
[2022-09-24] MEDS ORDERED: Electrolyte Replacement Protocol FS SCH (09:45)
[2022-09-24 10:21] LABS: #Lymphocytes 0.4 thou/uL (1.20-3.40); #Monocytes 0.2 thou/uL (0.11-0.59); #Neutrophils 2.2 thou/uL (1.40-6.50); %Basophils 0.4 % (0.0-1.0); %Eosinophils 0.2 % (0.0-10.0); %Lymphocytes 14.7 % (21.0-51.0); %Monocytes 7.4 % (0.0-10.0); %Neutrophils 77.3 % (42.0-75.0); Hemoglobin 10.8 g/dL (14.0-18.0); Mean Corpuscular HGB CONC 32.9 g/dL (32.0-36.0); Mean Corpuscular Hemoglobin 37.2 pg (27.0-31.0); Mean Platelet Volume 7.2 fL (7.4-10.4); Platelet Count 125 10x3/uL (130-400); RBC Distribution Width 11.8 % (11.5-14.5); Red Blood Cell (RBC) Count 2.89 mill/uL (4.70-6.10); White Blood Cell (WBC) Count 2.8 10x3/uL (4.8-10.8)
[2022-09-24 10:50] LABS: Anion Gap 14 mmol/L (10-20); BUN (Urea Nitrogen) 21 mg/dL (8.4-25.7); Calc. Creatinine Clearance 88 mL/min (70-130); Carbon Dioxide 17 mmol/L (23-31); Chloride 111 mmol/L (98-107); Estimated GFR 76; Glucose 138 mg/dL (83-110); Potassium 4.3 mmol/L (3.5-5.1); Sodium 138 mmol/L (136-145)
[2022-09-24] MEDS: cefTRIAXone\\ROCEPHIN 1 GM in Sodium Chloride 0.9% 100 ML IVPB SCH (12:54)
[2022-09-24] MEDS: Acetaminophen 325 MG TAB PO PRN (15:39)
[2022-09-24] MEDS: Rosuvastatin 20 MG TAB PO SCH (20:11)
[2022-09-25] MEDS: Dexamethasone 4 MG TAB PO SCH (05:27)
[2022-09-25] MEDS: XTANDI 40 MG PO SCH (07:27)
[2022-09-25] MEDS: pyridOXINE 50 MG (B6) TAB PO SCH (08:35)
[2022-09-25] MEDS: Multivitamin W/ Minerals 1 TAB PO SCH (08:36)
[2022-09-25] MEDS: Ascorbic Acid 500 mg Chewable Tablet PO SCH (08:36)
[2022-09-25] MEDS: Calcium Carbonate 600 MG + Vit D TAB PO SCH (08:37)
[2022-09-25] MEDS: Aspirin 81 mg Enteric Coated Tablet PO SCH (08:38)
[2022-09-25] MEDS: Folic Acid 1 MG TAB PO SCH (08:38)
[2022-09-25] MEDS: Enoxaparin Sodium 40 MG/0.4 ML SYRINGE SC SCH (08:39)
[2022-09-25] MEDS: Allopurinol 100 MG TAB PO SCH (08:39)
[2022-09-25] MEDS: Floranex 1 GM Packet PO SCH (08:39)
[2022-09-25] MEDS: MINERAL SUPPLEMENT PO SCH (08:40)
[2022-09-25] MEDS: [UNRECOGNIZED DRUG - OTHER] PO SCH (08:40)
[2022-09-25] MEDS: Ferrous Sulfate 325 MG TAB PO SCH (08:40)
[2022-09-25] MEDS: cefTRIAXone\\ROCEPHIN 1 GM in Sodium Chloride 0.9% 100 ML IVPB SCH (11:24)
[2022-09-25 11:42] VITALS: BP 129/73; TEMP 98.3
[2022-09-25] MEDS ORDERED: Dexamethasone 1 MG TAB PO SCH (12:00)
[2022-09-27] MEDS ORDERED: Dexamethasone 1 MG TAB PO SCH (12:00)
[2022-09-29] MEDS ORDERED: Ergocalciferol 1.25 MG(50,000 UNITS) CAP PO SCH (09:00)
[2022-09-29] MEDS ORDERED: Dexamethasone 1 MG TAB PO SCH (12:00)
== END 2022-09-25 12:50 | disposition home health service (06) | DRG 552 ==
LOC: ERS 02:02 → ERHOLD 05:06 → NEURO 13:22 → OBSVTOIN 09-24 14:10
PROVIDERS: ADMIT Internal Medicine; ATTEND Internal Medicine
DX: M48.061 Spinal stenosis, lumbar region without neurogenic claudication (principal); N39.0 Urinary tract infection, site not specified; N17.9 Acute kidney failure, unspecified; E87.1 Hypo-osmolality and hyponatremia; E87.20 Acidosis, unspecified; Z20.822 Contact with and (suspected) exposure to COVID-19; N18.2 Chronic kidney disease, stage 2 (mild); E66.9 Obesity, unspecified; D69.6 Thrombocytopenia, unspecified; R79.89 Other specified abnormal findings of blood chemistry; I12.9 Hypertensive chronic kidney disease with stage 1 through stage 4 chronic kidney disease, or unspecified chronic kidney disease; C61 Malignant neoplasm of prostate; M48.07 Spinal stenosis, lumbosacral region; Z28.21 Immunization not carried out because of patient refusal; Z68.32 Body mass index [BMI] 32.0-32.9, adult; Z79.899 Other long term (current) drug therapy; Z87.891 Personal history of nicotine dependence; Z93.2 Ileostomy status
CPT/HCPCS: 36415; 71045; 72131; 72158; 80048; 80053; 82550; 83735; 84484; 85025; 87077; 87086; 87186; 93005; 96372; 96374; 96376; G0378; J0696; J1650; J3490; J7050; J8540